=== PATIENT | female | born 1940 | race African-American/Black ===

== ENCOUNTER 2019-11-10 13:29 | Inpatient (IN) | payer OTHER ==
--- NOTE | 2019-11-10 13:59 | PDOC ---
History of Present Illness - General Chief Complaint: Chest Pain Stated Complaint: CP Time Seen by Provider: 11/10/19 13:37 History Source: Patient Exam Limitations: No Limitations - History of Present Illness Initial Comments: 11/10/19 13:56 PCP: Dr. Rubio HPI: 78yo F PMH primary pulmonary hypertension, HTN, COPD, CAD s/p triple bypass and stent placement 2017 presenting from [facility] with chest heaviness at 11:30 AM. Patient denies pain at the current time, endorses SOB, lightheadedness this morning with exertional chest heaviness / "congestion" that occured shortly after physical therapy session this morning. Patient reports difficulty with dizziness during her 9AM PT session, and then chest pain at the start of her second session. Sent to PT follow an admission to [facility]. Reports a remote Echo and stress test. Follows with Dr. Espinal. All: Per chart Meds: Per chart PMH: As above PSH: Per chart, triple bypass Past History - Travel Traveled outside of the country in the last 30 days: Yes Close contact w/someone who was outside of country & ill: Yes - Past Medical History Allergies/Adverse Reactions: Allergies Allergy/AdvReac Type Severity Reaction Status Date / Time ciprofloxacin [From Cipro] Allergy Verified 11/10/19 14:03 cortisone Allergy Verified 11/10/19 14:03 esomeprazole [From Nexium] Allergy Verified 11/10/19 14:03 hydrocodone Allergy Verified 11/10/19 14:03 NSAIDS (Non-Steroidal Allergy Verified 11/10/19 14:03 Anti-Inflamma paroxetine [From Paxil] Allergy Verified 11/10/19 14:03 Penicillins Allergy Verified 11/10/19 14:01 rosiglitazone [From Avandia] Allergy Verified 11/10/19 14:03 warfarin [From Coumadin] Allergy Verified 11/10/19 14:03 Review of Systems - Review of Systems Able to Perform ROS?: Yes Is the patient limited Kinyarwanda proficient: Yes Constitutional: No: Chills, Fever HEENTM: No: Nose Congestion, Throat Pain Respiratory: Yes: Shortness of Breath, SOB with Exertion. No: Cough, Productive cough Cardiac (ROS): Yes: Lightheadedness, Chest Tightness. No: Chest Pain, Edema, Irregular Heart Rate, Palpitations, Syncope ABD/GI: No: Constipated, Diarrhea, Nausea, Vomiting : No: Burning, Dysuria, Frequency Musculoskeletal: No: Muscle Pain, Muscle Weakness Integumentary: No: Pallor, Pruritus, Rash Neurological: No: Headache, Numbness, Tingling, Weakness Psychiatric: No: Stressors, Change in Appetite Endocrine: No: Increased Thirst, Increased Urine Hematologic/Lymphatic: No: Anemia, Blood Clots, Easy Bleeding All Other Systems: Reviewed and Negative *Physical Exam - Physical Exam 11/10/19 14:54 Vitals reviewed, AFVSS, on NC with EMS GEN: Well appearing, obese, appears stated age, NAD, comfortable. AAOx3. HEENT: NCAT, EOMI. Sclera anicteric, noninjected. No facial asymmetry. Moist mucous membranes. Normal voice. Trachea midline. CV: RRR, S1/S2, no murmurs / rubs / gallops appreciated. LUNG: CTAB, normal work of breathing. No wheezes, rales, rhonchi. No cough. Speaking full sentences. GI: Soft, NTND, no guarding, no rebound. No masses. Neg CVAT b/l. EXTREMITIES: 2+ distal pulses. No LE edema. No obvious deformities of all extremities. SKIN: Warm, dry, no rashes appreciated, non-jaundiced. PSYCH: Normal mood and affect. Cooperative and appropriate. NEURO: CN grossly intact. Moving all extremities well. Normal strength and sensation grossly. Heart Score/ECG Review - History History: Moderately suspicious - Electrocardiogram EKG: Normal - Age Age: >/= 65 - Risk Factors Based on the list above the patient has:: >/=3 risk factors or Hx atherosclerotic disease - Troponin Troponin: </= normal limit - Score Heart Score - Total: 5 ED Treatment Course - LABORATORY CBC & Chemistry Diagram: 11/10/19 15:23 11/10/19 15:23 - RADIOLOGY Radiology Studies Ordered: Category Date Time Status CHEST X-RAY PORTABLE* [RAD] Stat Radiology 11/10/19 13:39 Ordered Medical Decision Making - Medical Decision Making 11/10/19 14:51 78yo F PMH primary pulmonary hypertension, HTN, COPD on home O2, CAD s/p triple bypass and stent placement 2016 presenting from [facility] with chest heaviness at 11:30 AM. HEART Score 5. R/o ACS, unlikely PNA, Tamponade, PTX, Dissection, PE. Possibly MSK aches/pains in setting of aggressive daily PT. - CBC, CMP, Cardiac, PT/INR, BNP - CXR, EKG EKG: normal rate, NSR, normal axis, normal intervals, without ST changes 11/10/19 16:34 - Troponin 0.02 - CBC, CMP wnl - BNP 4690 - Non acute CXR Admit Tele Obs 11/10/19 17:51 - Patient endorsed to Dr. Jon - Admitted under Dr. Carter Discharge - Discharge Information Problems reviewed: Yes Clinical Impression/Diagnosis: Chest pain, rule out acute myocardial infarction Condition: Guarded - Admission Yes - Follow up/Referral Referrals: ON STAFF,NOT [Primary Care Provider] - - Patient Discharge Instructions - Post Discharge Activity
--- NOTE | 2019-11-10 14:32 | PDOC ---
Attending Attestation - Resident Resident Name: RamakrishnaSidney - ED Attending Attestation I have performed the following: I have examined & evaluated the patient, The case was reviewed & discussed with the resident, I agree w/resident's findings & plan - HPI HPI: 11/10/19 15:41 78yo F PMH primary pulmonary hypertension, HTN, COPD, CAD s/p triple bypass and stent placement 2017 presenting from [facility] with chest heaviness at 11:30 AM. Patient denies pain at the current time, endorses SOB, lightheadedness this morning with exertional chest heaviness / "congestion" that occured shortly after physical therapy session this morning. Patient reports difficulty with dizziness during her 9AM PT session, and then chest pain at the start of her second session. Sent to PT follow an admission to [facility]. Reports a remote Echo and stress test. Follows with Dr. Espinal. - Physicial Exam PE: 11/10/19 14:31 Agree with the resident's HPI and PE as documented in the electronic medical record. NAD, well appearing, EOMI, PERRL, nl conjunctiva, anicteric; neck supple. anterior sternotomy scars, lungs clear, RRR, abdomen soft nontender. no rebound , guarding. Back nontender. [place] x4, no focal neuro deficits. No peripheral edema. normal color for ethnicity, WWP. no calf tenderness 11/10/19 15:41 - Medical Decision Making 11/10/19 14:32 Vital Signs Temp Pulse Resp BP Pulse Ox 97.8 F 69 16 107/69 100 11/10/19 13:30 11/10/19 13:30 11/10/19 13:30 11/10/19 13:30 11/10/19 13:30 DDx chest pain: ACS, coronary vasospasm, NSTEMI, arrhythmia, unstable angina, PE , dissection, PUD, esophageal spasm, GERD, gastritis, costochondritis, pneumonia , pleurisy, pericarditis/myocarditis. dehydration, electrolyte/metabolic derangements. Considered but clinically doubt based on HPI and PE: Low suspicion for pulmonary embolism or dissection. Historically not abrupt in onset, tearing or ripping, pulses symmetric, no evidence of aortic dissection. EKG right bundle branch block at 67 bpm, sinus rhythm, no prior EKG, nonspecific T wave abnormalities this could go with her pulmonary hypertension Chest x-ray with cardiomegaly, sternotomy scars noted, blunting at the bases, trachea midline, bones are intact Chest pain HEART score 5 which denotes Moderate risk and probability for ACS, risk of 14-16% of MACE at 4-6 wks Given risk factors including comorbidities, gender, family and tobacco use. Plan for admit observation, chest pain to r/o ischemia, serial trops and EKG/ tele monitoring, echo and cards eval. discussion with patient and family at bedside, made aware of impression and plan, questions answered. 11/10/19 14:37 11/11/19 14:44 Heart Score/ECG Review - History History: Slightly suspicious - Electrocardiogram EKG: Non specific repolarization disturbance - Age Age: >/= 65 - Risk Factors Risk Factors Heart Score: Yes Hx Hypercholesterolemia, Yes Hx Hypertension, Yes Hx Obesity Based on the list above the patient has:: >/=3 risk factors or Hx atherosclerotic disease - Troponin Troponin: </= normal limit - Score Heart Score - Total: 5 #1 ECG reviewed & interpreted by me at: 13:55 General ECG Interpretation: Sinus Rhythm, Normal Rate, Normal Intervals Compared to previous ECG there are: Previous ECG unavail 11/10/19 14:31 EKG normal sinus rhythm 67 bpm, no interval abnormalities, wide QRS, right bundle branch block, ST and T wave segments and morphology normal. Nonspecific T wave abnormalities
--- NOTE | 2019-11-10 15:15 | CON.CARD ---
Consult Consult Specialty:: cardiology Reason for Consultation:: chest pain; hx CAD - History of Present Illness Chief Complaint: Pt A&O; no chest pain or dyspnea presetnly. History of Present Illness: 78yo F PMH primary pulmonary hypertension, HTN, COPD, CAD s/p triple bypass and stent placement 2016, obesity, sedentary lifestyle, presenting from [facility] with chest heaviness at 11:30 AM. Patient denies pain at the current time, endorses SOB, lightheadedness this morning with exertional chest heaviness / "congestion" that occurred shortly after physical therapy session this morning. Patient reports difficulty with dizziness during her 9AM PT session, and then chest pain at the start of her second session. Sent to PT follow an admission to [facility]. Reports a remote Echo and stress test. Cardiology: Dr. Espinal. All: Per chart PMHx: s/p PCI LM 03/2017 2 V CABG CUETO OM and SVG to RCA February 2013 Dr. Thakkar Left CEA Right Carotid artery stenting Dr. Castrejon Right CEA s/p right SFA/popliteal/TPT/peroneal angioplasty for right foot ulcers 04/2018 Dr Castrejon Ongoing medical problems ASHD negative MIBI ST 2011 ASHD PTCA , drug eluting stent placement in 90 % stenosed rPDA, JOSH-promus placement in mLAD and PTCA of 1st diagonal. Nov,January 2010 depression DM 1979 HHD HTN hyperlipidemia In stent restenosis LAD proximal and mid segment. December 30, 2011 [place] 1995 Spinal stenosis 2001 [facility]stem[facility] f/u PCI JOSH LM [facility] dr. Polanco March 2017 Preventive care No preventive care recordedPM - History Source History Provided By: Patient, Medical Record Limitations to Obtaining History: Poor Historian - Past Medical History Cardio/Vascular: Yes: CAD, CHF, HTN, Other (CABG) Renal/: Yes: Renal Inusuff Reproductive: Yes: Postmenopausal ...: No - Past Surgical History Past Surgical History: Yes: CABG, Stent (coronary) - Alcohol/Substance Use Hx Alcohol Use: No - Smoking History Smoking history: Never smoked Home Medications - Allergies Allergies/Adverse Reactions: Allergies Allergy/AdvReac Type Severity Reaction Status Date / Time ciprofloxacin [From Cipro] Allergy Verified 11/10/19 14:03 cortisone Allergy Verified 11/10/19 14:03 esomeprazole [From Nexium] Allergy Verified 11/10/19 14:03 hydrocodone Allergy Verified 11/10/19 14:03 NSAIDS (Non-Steroidal Allergy Verified 11/10/19 14:03 Anti-Inflamma paroxetine [From Paxil] Allergy Verified 11/10/19 14:03 Penicillins Allergy Verified 11/10/19 14:01 rosiglitazone [From Avandia] Allergy Verified 11/10/19 14:03 warfarin [From Coumadin] Allergy Verified 11/10/19 14:03 - Home Medications Home Medications: Ambulatory Orders Acetaminophen 1,000 mg PO BID 11/11/19 Aspirin [Aspirin EC] 81 mg PO DAILY 11/11/19 Atorvastatin Ca [Lipitor] 40 mg PO HS 11/11/19 Citalopram Hydrobromide [Citalopram HBr] 20 mg PO DAILY 11/11/19 Clopidogrel Bisulfate [Clopidogrel] 75 mg PO DAILY 11/11/19 Ezetimibe 10 mg PO HS 11/11/19 Folic Acid 1 mg PO DAILY 11/11/19 Insulin Glargine,Hum.rec.anlog [Lantus Solostar PEN -] 45 unit SQ HS 11/11/19 Insulin Lispro [Humalog] 10 unit SQ AC 11/11/19 Isosorbide Mononitrate [Imdur -] 30 mg PO DAILY 11/11/19 Levalbuterol HCl 0.31 mg IH Q8H PRN 11/11/19 Lisinopril [Zestril] 2.5 mg PO DAILY 11/11/19 Metformin HCl [Glucophage] 500 mg PO BID 11/11/19 Metoprolol Tartrate 50 mg PO BID 11/11/19 Montelukast Na [Singulair -] 10 mg PO HS 11/11/19 Nortriptyline HCl [Pamelor -] 25 mg PO HS 11/11/19 Pantoprazole Sodium [Protonix -] 40 mg PO DAILY 11/11/19 Polyethylene Glycol 3350 [Gavilax] 17 gm PO BID 11/11/19 Family Medical History Family History: Denies Review of Systems - Review of Systems Constitutional: reports: No Symptoms Eyes: reports: No Symptoms HENT: reports: No Symptoms Neck: reports: No Symptoms Cardiovascular: reports: Chest Pain Respiratory: reports: No Symptoms Gastrointestinal: reports: No Symptoms Genitourinary: reports: No Symptoms Breasts: reports: No Symptoms Reported Musculoskeletal: reports: Muscle Weakness Integumentary: reports: No Symptoms Neurological: reports: Weakness Endocrine: reports: No Symptoms Hematology/Lymphatic: reports: No Symptoms Psychiatric: reports: No Symptoms - Risk Factors Known Risk Factors: Yes: Age, Hypercholesterolemia, Hypertension, Physical Inactivity, Other (CAD/CABG) Vital Signs: Vital Signs Temperature 97.8 F 11/10/19 13:30 Pulse Rate 69 11/10/19 13:30 Respiratory Rate 16 11/10/19 13:30 Blood Pressure 107/69 11/10/19 13:30 O2 Sat by Pulse Oximetry (%) 100 11/10/19 13:30 Constitutional: Yes: Calm Eyes: Yes: WNL HENT: Yes: WNL Neck: Yes: WNL Respiratory: Yes: WNL Gastrointestinal: Yes: Soft Renal/: No: Anuria Cardiovascular: Yes: Regular Rate and Rhythm Heart Sounds: Yes: S1, S2, S4 Musculoskeletal: Yes: Back Pain, Joint Stiffness Edema: No Peripheral Pulses WNL: Yes Psychiatric: Yes: Alert, Oriented - Other Data Echo: Pending Prior Cardiac Procedures: CABG, PTCA with Stent Problem List - Problems (1) Coronary artery disease Code(s): I25.10 - ATHSCL HEART DISEASE OF [place] CORONARY ARTERY W/O ANG PCTRS (2) HTN (hypertension) Assessment/Plan: On furosemide and Imdur. F/u BP serially. F/u ECHO for LVEF, wall motion, valve status. Code(s): I10 - ESSENTIAL (PRIMARY) HYPERTENSION (3) Obesity Code(s): E66.9 - OBESITY, UNSPECIFIED (4) Hyperlipidemia Assessment/Plan: On atorvastatin. F/u lipid profile. Code(s): E78.5 - HYPERLIPIDEMIA, UNSPECIFIED (5) Chest pain, rule out acute myocardial infarction Assessment/Plan: TNI < 0.02 x 1; f/u serially. F/u EKG: telemetry. ECHO for LVEF, wall motion, valve status. On ASA and clopidogrel. Code(s): R07.9 - CHEST PAIN, UNSPECIFIED
[2019-11-10 15:53] LABS: BASO % 0.8 % (0-2.0); EOS % 2.7 % (0-4.5); HEMATOCRIT 35.1 % (32.4-45.2); HEMOGLOBIN 11.1 GM/dL (10.7-15.3); LYMPH % 27.7 % (8-40); MCH 27.2 pg (25.7-33.7); MCHC 31.7 g/dl (32.0-36.0); MEAN CELL VOLUME 85.8 fl (80-96); MEAN PLT VOLUME 8.1 fl (7.5-11.1); MONO % 10.2 % (3.8-10.2); NEUT % 58.6 % (42.8-82.8); PLATELET COUNT 195 K/MM3 (134-434); RBC 4.09 M/mm3 (3.60-5.2); RDW 17.9 % (11.6-15.6)
[2019-11-10 16:22] LABS: BILIRUBIN,TOTAL 0.3 mg/dL (0.2-1); BLOOD UREA NITROGEN 47.1 mg/dL (7-18); CREATININE 1.6 mg/dL (0.55-1.3); N-TERMINAL BNP 4690.2 pg/ml (5-450); POTASSIUM 5.5 mmol/L (3.5-5.1); TOT PROT 6.5 g/dl (6.4-8.2)
--- NOTE | 2019-11-10 19:13 | PN ---
Teaching Attending Note Name of Resident: Lucius Fletcher ATTENDING PHYSICIAN STATEMENT I saw and evaluated the patient. I reviewed the resident's note and discussed the case with the resident. I agree with the resident's findings and plan as documented. SUBJECTIVE: Patient is a 78 year old woman with PMH of Primary pulmonary hypertension, HTN, COPD (2L oxygen), NIDDM, Bilateral carotid endarterectomy, Hysterectomy, CKD and CAD (s/p triple bypass and stent placement 2016) presenting from [facility] with chest heaviness at 11:30 AM. Patient denies pain at the current time. Had SOB, lightheadedness this morning with exertional chest heaviness/ "congestion" that occured shortly after physical therapy session this morning. Patient reports difficulty with dizziness during her 9AM PT session, and then chest pain at the start of her second session. Sent to PT followwing an admission to [facility] for "SOB and severe weakness". Was on lasix, but was stopped at [facility]. Reports a remote ECHO and stress test. Follows with Dr. Espinal. Denies nausea, vomiting, fever, chills, abdominal pain, diarrhea or dysuria. Denies alcohol, tobacco or illicit drug use. No sick contacts or recent travels. OBJECTIVE: Alert and not orthostatic Vital Signs Period Temp Pulse Resp BP Sys/Forrester Pulse Ox Last 24 Hr 97.8 F-98.0 F 69-72 16-18 107-110/65-69 100-100 HEENT: No Jaundice, eye redness or discharge, PERRLA, EOMI. Normocephalic, atraumatic. External ears are normal and hearing is grossly intact. No nasal discharge. Neck: Supple, nontender. No palpable adenopathy or thyromegaly. No JVD Chest: Good effort. Clear to auscultation and percussion. Heart: Regular. No S3, rub or murmur Abdomen: Not distended, soft, nontender and no HSM. No rebound or guarding. Normal bowel sounds. Ext: Peripheral pulses intact. No leg edema. Skin: Warm and dry. No petechiae, rash or ecchymosis. Neuro: Alert. Oriented x3. CN 2-12 grossly intact. Sensation grossly intact in all four extremities and DTR are symmetric. Psych: Appropriate mood and affect. Good insight. Abnormal Lab Results 11/10/19 11/10/19 11/10/19 15:23 15:23 15:23 MCHC 31.7 L RDW 17.9 H PT with INR 13.50 H INR 1.14 H Potassium Chloride Anion Gap BUN Creatinine Random Glucose AST ALT Alkaline Phosphatase Creatine Kinase 202 H B-Natriuretic Peptide Albumin 11/10/19 15:23 MCHC RDW PT with INR INR Potassium 5.5 H Chloride 108 H Anion Gap 7 L BUN 47.1 H Creatinine 1.6 H Random Glucose 117 H AST 102 H ALT 79 H Alkaline Phosphatase 128 H Creatine Kinase B-Natriuretic Peptide 4690.2 H Albumin 3.0 L Current Medications Generic Name Dose Route Start Last Admin Trade Name Freq PRN Reason Stop Dose Admin Dextrose 25 gm 11/10/19 20:35 D50w (Vial) - IVPUSH 11/10/19 20:36 NOW ONE Furosemide 40 mg 11/10/19 20:45 Lasix Injection - IVPUSH DAILY [facility] Heparin Sodium (Porcine) 5,000 unit 11/10/19 20:45 Heparin - SQ Q8H-IV JOSE GUADALUPE Insulin Aspart 5 units 11/11/19 20:36 Novolog SQ 11/11/19 20:37 ONCE ONE ASSESSMENT AND PLAN: 1. Chest pain - Now pain free. EKG shows NSR, LAE, LAD and RBBB. Initial troponin is negative. CXR shows cardiomegaly. Will admit to telemetry to rule out ACS, get ECHO and consult cardiology. Give a trial of lasix 40 mg IV and guage response - may need a higher dose. Restrict dietary salt intake and get daily standing weight. Consult PT. 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 Will give D50W, insulin and one dose of Lokelma. Repeat BMP after 4 hours. Trend LFTs, get hepatitis serology and get upper abdominal sonogram. Will continue comprehensive care for all of patients comorbid conditions. 2. Hypoalbuminemia - Possibly due to combined effects of malnutrition and inflammation associated with comorbid chronic conditions. Will ensure adequate dietary protein intake and also consult nuclear process engineer. Urinalysis pending. 3. DM For now, we will hold the home diabetes drugs and implement sliding scale insulin regimen. Provide comprehensive diabetes care with patient teaching and counseling about the importance of adherence to prescribed diabetes regimen, euglycemia, eye care and foot care. 4. CKD - Has multiple risk factors for CKD. Will consult nephrology and avoid nephrotoxic agents such as NSAIDS, aminoglycosides, contrast dyes and certain Alternative medicine products. 5. Obesity Counseled on the risks associated with obesity. Will provide patient all the necessary assistance, counseling and positive reinforcement to facilitate weight loss. Consult nuclear process engineer. 6. Hypertension - Restart suitable outpatient antihypertensive drugs when clinically appropriate. Revise regimen to ensure [id number] excellent BP control and child guidance counselor patient on the injurious effects of uncontrolled hypertension. Nonpharmacologic measures to control hypertension like weight loss , salt restriction and exercise discussed. Importance of adherence to treatment regimen and attainment of normotension emphasized. 7. DVT prophylaxis - Heparin 5000u sq tid. 8. Advance directives - Full code
[2019-11-10] MEDS ORDERED: DEXTROSE 50%-WATER - 25 GM/50 ML VIAL IVPUSH ONE (20:35)
--- NOTE | 2019-11-10 20:54 | HP ---
CHIEF COMPLAINT: SOB w/ chest pressure PCP: Joanne HISTORY OF PRESENT ILLNESS: 78F w/ pmh HTN, diabetic CKD, IDDM, primary pulmonary HTN, L-spine stenosis, COPD(2L O2), CAD(s/p 3v bypass 2013, s/p cath 2016), recent admission to [facility] for SOB and weakness. Presenting to [facility] for complaint of chest pressure and SOB intermittently throughout morning of admission. Was at [facility], receiving PT(arm excercises with wrist weights) and experienced SOB, chest pressure. Pt tried rest but pressure did not resolve. Received a SL nitro tab w/ little effect. Had CP relief after Duonebs. The [facility] staff decided to send pt to ED to evaluate for VT. Pt endorses having lasix in the past, but medication stopped upon [facility] admission. Says that she has had nonproductive cough since ~Fall 2018. Sleeps with multiple pillows. Has had intermittent BLE swelling. Claims to have annual stress tests. Lives in [facility], adult granddaughter currently living with pt. Uses walker to ambulate. Former occupation as seamstress with hats, clothing ER course was notable for: (1) Cr 1.6, K 5.5 (2) BNP 4690, troponin neg x1 (3) EKG: NSR, QTc 471 (4) CXR: weak inspiration (5) orthostatics neg(supine 75, 126/59; sitting 78, 120/65) Recent Travel: none PAST MEDICAL HISTORY: HTN, diabetic CKD, IDDM, primary pulmonary HTN, L-spine stenosis, COPD(2L O2), CAD(s/p 3v bypass 2013, s/p cath 2016) PAST SURGICAL HISTORY: Carotid Endartectomy CABG x3v cadiac cath hysterectomy Social History: Smoking: never Alcohol: social Drugs: never Allergies ciprofloxacin [From Cipro] Allergy (Verified 11/10/19 14:03) cortisone Allergy (Verified 11/10/19 14:03) esomeprazole [From Nexium] Allergy (Verified 11/10/19 14:03) hydrocodone Allergy (Verified 11/10/19 14:03) NSAIDS (Non-Steroidal Anti-Inflamma Allergy (Verified 11/10/19 14:03) paroxetine [From Paxil] Allergy (Verified 11/10/19 14:03) Penicillins Allergy (Verified 11/10/19 14:01) rosiglitazone [From Avandia] Allergy (Verified 11/10/19 14:03) warfarin [From Coumadin] Allergy (Verified 11/10/19 14:03) HOME MEDICATIONS: REVIEW OF SYSTEMS CONSTITUTIONAL: generalized weakness, mild weight gain Absent: fever, chills, diaphoresis, malaise, loss of appetite, HEENT: Absent: rhinorrhea, nasal congestion, throat pain, throat swelling, difficulty swallowing, mouth swelling, ear pain, eye pain, visual changes CARDIOVASCULAR: substernal chest pressure, lightheadedness, Absent: syncope, palpitations, irregular heart rate, peripheral edema RESPIRATORY: nonproductive cough, dyspnea with exertion, orthopnea, Absent: shortness of breath,wheezing, stridor, hemoptysis GASTROINTESTINAL: Absent: abdominal pain, abdominal distension, nausea, vomiting, diarrhea, constipation, melena, hematochezia GENITOURINARY: Absent: dysuria, frequency, urgency, hesitancy, hematuria, flank pain, genital pain MUSCULOSKELETAL: chronic lower back pain Absent: myalgia, arthralgia, joint swelling, neck pain SKIN: Absent: rash, itching, pallor NEUROLOGIC: Absent: headache, focal weakness, dizziness, unsteady gait, seizure, mental status changes, bladder or bowel incontinence PHYSICAL EXAMINATION Vital Signs - 24 hr 11/10/19 11/10/19 13:30 18:07 Temperature 97.8 F 98.0 F Pulse Rate 69 Pulse Rate [ 72 Apical] Respiratory 16 18 Rate Blood Pressure 107/69 Blood Pressure 110/65 [Right Arm] O2 Sat by Pulse 100 100 Oximetry (%) GENERAL: Awake, alert, and fully oriented, in no acute distress. Morbid obesity HEAD: NC/AT. EYES: extraocular movements intact, sclera anicteric, conjunctiva clear. No lid lag. EARS, NOSE, THROAT: Ears normal, nares patent, oropharynx clear without exudates. Moist mucous membranes. NECK: Normal range of motion, supple without lymphadenopathy, JVD, or masses. LUNGS: Breath sounds equal, clear to auscultation bilaterally. No wheezes, and no crackles. No accessory muscle use. Speaking full sentences comfortably on RA HEART: Regular rate and rhythm, normal S1 and S2 without murmur, rub or gallop. ABDOMEN: Right-sided surgical scar indentation, soft distendble Right paraumbilical hernia(reducible). Soft, nontender, not distended, normoactive bowel sounds, no guarding, no rebound, no masses. MUSCULOSKELETAL: Normal range of motion at all joints. No bony deformities or tenderness. No CVA tenderness. UPPER EXTREMITIES: 2+ pulses, warm, well-perfused. No cyanosis. No clubbing. No peripheral edema. LOWER EXTREMITIES: 2+ pulses, warm, well-perfused. No calf tenderness. Non- pitting edema of BLE. Tree-bark, hyperpigmented anterior lower legs with thickened skin NEUROLOGICAL: Cranial nerves II-XII intact. Normal speech. Normal gait. PSYCHIATRIC: Cooperative. Good eye contact. Appropriate mood and affect. Laboratory Results - last 24 hr 11/10/19 11/10/19 11/10/19 15:23 15:23 15:23 WBC 9.0 RBC 4.09 Hgb 11.1 Hct 35.1 MCV 85.8 MCH 27.2 MCHC 31.7 L RDW 17.9 H Plt Count 195 MPV 8.1 Absolute Neuts (auto) 5.3 Neutrophils % 58.6 Lymphocytes % 27.7 Monocytes % 10.2 Eosinophils % 2.7 Basophils % 0.8 Nucleated RBC % 0 PT with INR 13.50 H INR 1.14 H PTT (Actin FS) 28.0 Sodium Potassium Chloride Carbon Dioxide Anion Gap BUN Creatinine Est GFR (CKD-EPI)AfAm Est GFR (CKD-EPI)NonAf Random Glucose Calcium Total Bilirubin AST ALT Alkaline Phosphatase Creatine Kinase 202 H Creatine Kinase Index 1.3 CK-MB (CK-2) 2.8 Troponin I < 0.02 B-Natriuretic Peptide Total Protein Albumin 11/10/19 15:23 WBC RBC Hgb Hct MCV MCH MCHC RDW Plt Count MPV Absolute Neuts (auto) Neutrophils % Lymphocytes % Monocytes % Eosinophils % Basophils % Nucleated RBC % PT with INR INR PTT (Actin FS) Sodium 139 Potassium 5.5 H Chloride 108 H Carbon Dioxide 24 Anion Gap 7 L BUN 47.1 H Creatinine 1.6 H Est GFR (CKD-EPI)AfAm 35.15 Est GFR (CKD-EPI)NonAf 30.33 Random Glucose 117 H Calcium 9.0 Total Bilirubin 0.3 AST 102 H ALT 79 H Alkaline Phosphatase 128 H Creatine Kinase Creatine Kinase Index CK-MB (CK-2) Troponin I B-Natriuretic Peptide 4690.2 H Total Protein 6.5 Albumin 3.0 L ASSESSMENT/PLAN: 78F w/ pmh HTN, diabetic CKD, IDDM, primary pulmonary HTN, L-spine stenosis, COPD(2L O2), CAD(s/p 3v bypass 2013, s/p cath 2016), sent to [facility] for complaint of chest pressure and SOB, worsened with activity. Admitted for ACS r/ o. # chest pain --likely mild CHFe vs MSK > EKG: NSR, QTc 487 > troponin neg x1 > BNP 4690 > CR: weak inspiration - fu rpt EKG --pending - fu echo --pending - fu cardiac enzymes --pending - lasix 40mg IVP, QD - CardioBrayan) consult: --recs pending - daily weights - limit sodium <1.5g/daily # transaminitis --likely fatty liver - fu US RUQ --pending - hepatitis panel --pending # diabetic CKD > Cr 1.6 - consider Nephro Consult # CAD - cw plavix, ASA # IDDM diabetes - Levemir 45U HS - ISS # COPD --unlikely in excerbation - cw home O2 requirements(2L) - cw home meds # prolonged QTc ~471 - avoid QTc-prolonging drugs FEN - sodium controlled diet - avoid IVF DVT -SQH Dispo -Tele Visit type - Emergency Visit Emergency Visit: Yes ED Registration Date: 11/10/19 Care time: The patient presented to the Emergency Department on the above date and was hospitalized for further evaluation of their emergent condition. - New Patient This patient is new to me today: Yes Date on this admission: 11/11/19 - Critical Care Critical Care patient: No ATTENDING PHYSICIAN STATEMENT I saw and evaluated the patient. I reviewed the resident's note and discussed the case with the resident. I agree with the resident's findings and plan as documented. SUBJECTIVE: OBJECTIVE: ASSESSMENT AND PLAN:
[2019-11-10 21:40] LABS: INR 1.12 (0.83-1.09); PROTHROMBIN TIME (PATIENT) 13.2 SEC (9.7-13.0)
[2019-11-10] MEDS ORDERED: DEXTROSE 50%-WATER 25 GM/50 ML DISP.SYRIN ONE (21:41)
[2019-11-10 21:43] LABS: ACTIVATED PTT 26.6 SECONDS (25.2-36.5)
[2019-11-10] MEDS: FUROSEMIDE 40 MG/4 ML INJECTABLE VIAL IVPUSH SCH (21:48)
[2019-11-10] MEDS: HEPARIN NA (PORCINE) 5,000 UNITS/ML 1ML VIAL SQ SCH (21:48)
[2019-11-10] MEDS ORDERED: INSULIN (NOVOLOG) ASPART 100 UNITS/ML 10ML VIAL SQ ONE (22:57)
[2019-11-10] MEDS ORDERED: ACETAMINOPHEN 325 MG TABLET (FP) PO PRN (23:29)
[2019-11-11 01:12] VITALS: BMI 36.6
[2019-11-11] MEDS ORDERED: SODIUM ZIRCONIUM CYCLOSILICATE (LOKELMA) 5 GM PACKET PO ONE (03:30)
[2019-11-11] MEDS: HEPARIN NA (PORCINE) 5,000 UNITS/ML 1ML VIAL SQ SCH ×3 (03:30→17:21)
[2019-11-11 08:12] LABS: HEMATOCRIT 38.8 % (32.4-45.2); HEMOGLOBIN 12.4 GM/dL (10.7-15.3); MCH 27.2 pg (25.7-33.7); MEAN CELL VOLUME 85.2 fl (80-96); MEAN PLT VOLUME 7.8 fl (7.5-11.1); PLATELET COUNT 177 K/MM3 (134-434); RBC 4.56 M/mm3 (3.60-5.2); RDW 17.4 % (11.6-15.6); WHITE BLOOD COUNT 8.1 K/mm3 (4.0-10.0)
[2019-11-11 08:32] LABS: ALBUMIN 3.6 g/dl (3.4-5.0); ALK PHOS 131 U/L (45-117); ANION GAP 8 MMOL/L (8-16); BILIRUBIN,TOTAL 0.6 mg/dL (0.2-1); BLOOD UREA NITROGEN 39.3 mg/dL (7-18); CALCIUM 9.3 mg/dL (8.5-10.1); CHLORIDE 100 mmol/L (98-107); CHOLESTEROL 123 mg/dL (50-200); CO2 28 mmol/L (21-32); CREATININE 1.5 mg/dL (0.55-1.3); GLUCOSE,RANDOM 156 mg/dL (74-106); HDL CHOLESTEROL 42 mg/dL (40-60); LDL CHOLESTEROL (ONLY SJRH) 60 mg/dL (5-100); MAGNESIUM 1.8 mg/dL (1.8-2.4); POTASSIUM 4.5 mmol/L (3.5-5.1); SGOT/AST 71 U/L (15-37); SGPT/ALT 75 U/L (13-61); SODIUM 136 mmol/L (136-145); TOT PROT 7.4 g/dl (6.4-8.2); TRIGLYCERIDES 109 mg/dL (0-150)
[2019-11-11] MEDS: CLOPIDOGREL BISULFATE 75 MG TABLET (FP) PO SCH (09:35)
[2019-11-11] MEDS: PANTOPRAZOLE 40 MG TABLET PO SCH (09:35)
[2019-11-11] MEDS: ISOSORBIDE MONONITRATE 30 MG TAB.SR.24H (FP) PO SCH (09:35)
[2019-11-11] MEDS: FUROSEMIDE 40 MG/4 ML INJECTABLE VIAL IVPUSH SCH (09:36)
[2019-11-11] MEDS: ASPIRIN COATED 81 MG TABLET.EC PO SCH (09:36)
[2019-11-11] MEDS: METOPROLOL TARTRATE 50 MG TABLET (FP) PO SCH ×2 (09:36→21:18)
--- NOTE | 2019-11-11 09:49 | PN ---
Progress Note, Physician History of Present Illness: 78yo F PMH primary pulmonary hypertension, HTN, COPD, CAD s/p triple bypass and stent placement 2017, obesity, sedentary lifestyle, presenting from [facility] with chest heaviness at 11:30 AM. Patient denies pain at the current time, endorses SOB, lightheadedness this morning with exertional chest heaviness / "congestion" that occurred shortly after physical therapy session this morning. Patient reports difficulty with dizziness during her 9AM PT session, and then chest pain at the start of her second session. Sent to PT follow an admission to [facility]. Reports a remote Echo and stress test. PMHx: s/p PCI LM 03/2017 2 V CABG CUETO OM and SVG to RCA February 2013 Dr. Thakkar Left CEA Right Carotid artery stenting Dr. Castrejon Right CEA s/p right SFA/popliteal/TPT/peroneal angioplasty for right foot ulcers 04/2018 Dr Castrejon Ongoing medical problems ASHD negative MIBI ST 2011 ASHD PTCA , drug eluting stent placement in 90 % stenosed rPDA, JOSH-promus placement in mLAD and PTCA of 1st diagonal. Nov,January 2010 depression DM 1978 HHD HTN hyperlipidemia In stent restenosis LAD proximal and mid segment. December 30, 2011 [place] 1994 Spinal stenosis 2001 Nonstemi [facility] f/u PCI [facility] Polanco March 2017 Preventive care No preventive care recordedPM - Current Medication List Current Medications: Active Medications Aspirin (Ecotrin -) 81 mg PO DAILY [facility] Last Admin: 11/11/19 09:36 Dose: 81 mg Atorvastatin Calcium (Lipitor -) 40 mg PO HS [facility] Clopidogrel Bisulfate (Plavix -) 75 mg PO DAILY [facility] Last Admin: 11/11/19 09:35 Dose: 75 mg Furosemide (Lasix Injection -) 40 mg IVPUSH DAILY [facility] Last Admin: 11/11/19 09:36 Dose: 40 mg Heparin Sodium (Porcine) (Heparin -) 5,000 unit SQ Q8H-IV [facility] Last Admin: 11/11/19 09:36 Dose: 5,000 unit Insulin Aspart (Novolog Vial) 1 units SQ ACHS [facility]; Protocol Insulin Detemir (Levemir Vial) 45 units SQ HS [facility] Isosorbide Mononitrate (Imdur -) 30 mg PO DAILY [facility] Last Admin: 11/11/19 09:35 Dose: 30 mg Metoprolol Tartrate (Lopressor -) 50 mg PO BID [facility] Last Admin: 11/11/19 09:36 Dose: 50 mg Pantoprazole Sodium (Protonix -) 40 mg PO DAILY [facility] Last Admin: 11/11/19 09:35 Dose: 40 mg - Objective Vital Signs: Vital Signs Temperature 98.6 F 11/11/19 05:32 Pulse Rate 88 11/11/19 05:32 Respiratory Rate 11/11/19 08:19 Blood Pressure 139/65 11/11/19 05:32 O2 Sat by Pulse Oximetry (%) 97 11/11/19 08:19 Eyes: Yes: WNL, Conjunctiva Clear, EOM Intact HENT: Yes: WNL, Atraumatic, Normocephalic Neck: Yes: WNL, Supple, Trachea Midline Cardiovascular: Yes: WNL, Regular Rate and Rhythm Respiratory: Yes: WNL, Regular, CTA Bilaterally Gastrointestinal: Yes: WNL, Normal Bowel Sounds Genitourinary: Yes: WNL Musculoskeletal: Yes: WNL Extremities: Yes: WNL Edema: No Integumentary: Yes: WNL Neurological: Yes: WNL, Alert, Oriented ...Motor Strength: WNL Psychiatric: Yes: WNL Labs: CBC, BMP 11/11/19 07:10 11/11/19 07:10 INR, PTT INR 1.12 (0.83-1.09) H 11/10/19 15:23 Assessment/Plan - Problems (1) Coronary artery disease Code(s): I25.10 - ATHSCL HEART DISEASE OF [place] CORONARY ARTERY W/O ANG PCTRS (2) HTN (hypertension) Assessment/Plan: On furosemide and Imdur. F/u BP serially. F/u ECHO for LVEF, wall motion, valve status. Code(s): I10 - ESSENTIAL (PRIMARY) HYPERTENSION (3) Obesity Code(s): E66.9 - OBESITY, UNSPECIFIED (4) Hyperlipidemia Assessment/Plan: On atorvastatin. F/u lipid profile. Code(s): E78.5 - HYPERLIPIDEMIA, UNSPECIFIED (5) Chest pain, rule out acute myocardial infarction Assessment/Plan: TNI < 0.02 x 1; f/u serially. F/u EKG: telemetry. ECHO for LVEF, wall motion, valve status. On ASA and clopidogrel. Risk stratification when stable. Code(s): R07.9 - CHEST PAIN, UNSPECIFIED
[2019-11-11] MEDS: INSULIN (NOVOLOG) ASPART 100 UNITS/ML 10ML VIAL SQ SCH ×4 (12:09→21:19)
--- NOTE | 2019-11-11 12:46 | PN ---
Progress Note, Physician Chief Complaint: Chest Pain History of Present Illness: Previous notes and events reviewed awake and alert NAD denies complaints of chest pain or SOB trop neg x 2 elevated BNP - Current Medication List Current Medications: Active Medications Aspirin (Ecotrin -) 81 mg PO DAILY [facility] Last Admin: 11/11/19 09:36 Dose: 81 mg Atorvastatin Calcium (Lipitor -) 40 mg PO HS [facility] Clopidogrel Bisulfate (Plavix -) 75 mg PO DAILY [facility] Last Admin: 11/11/19 09:35 Dose: 75 mg Furosemide (Lasix Injection -) 40 mg IVPUSH DAILY [facility] Last Admin: 11/11/19 09:36 Dose: 40 mg Heparin Sodium (Porcine) (Heparin -) 5,000 unit SQ Q8H-IV [facility] Last Admin: 11/11/19 09:36 Dose: 5,000 unit Insulin Aspart (Novolog Vial) 1 units SQ [facility]; Protocol Last Admin: 11/11/19 12:10 Dose: Not Given Insulin Detemir (Levemir Vial) 45 units SQ [facility] Isosorbide Mononitrate (Imdur -) 30 mg PO DAILY [facility] Last Admin: 11/11/19 09:35 Dose: 30 mg Metoprolol Tartrate (Lopressor -) 50 mg PO BID [facility] Last Admin: 11/11/19 09:36 Dose: 50 mg Pantoprazole Sodium (Protonix -) 40 mg PO DAILY [facility] Last Admin: 11/11/19 09:35 Dose: 40 mg - Objective Vital Signs: Vital Signs Temperature 98.6 F 11/11/19 05:32 Pulse Rate 88 11/11/19 05:32 Respiratory Rate 20 11/11/19 08:19 Blood Pressure 139/65 11/11/19 05:32 O2 Sat by Pulse Oximetry (%) 97 11/11/19 08:19 Constitutional: Yes: No Distress, Calm, Obese Eyes: Yes: Conjunctiva Clear HENT: Yes: Atraumatic Cardiovascular: Yes: Regular Rate and Rhythm Respiratory: Yes: Regular, Diminished, On Nasal O2 Gastrointestinal: Yes: Normal Bowel Sounds, Soft, Abdomen, Obese Genitourinary: Yes: Incontinence Musculoskeletal: Yes: Muscle Weakness Extremities: Yes: WNL Edema: No Neurological: Yes: Alert, Oriented Psychiatric: Yes: Alert, Oriented Labs: CBC, BMP 11/11/19 07:10 11/11/19 07:10 INR, PTT INR 1.12 (0.83-1.09) H 11/10/19 15:23 Problem List - Problems (1) Coronary artery disease Assessment/Plan: -Aspirin, Plavix, and Atorvastatin Code(s): I25.10 - ATHSCL HEART DISEASE OF [place] CORONARY ARTERY W/O ANG PCTRS (2) HTN (hypertension) Assessment/Plan: -Isosorbide -low Na diet Code(s): I10 - ESSENTIAL (PRIMARY) HYPERTENSION (3) Hyperlipidemia Assessment/Plan: -Atorvastatin Code(s): E78.5 - HYPERLIPIDEMIA, UNSPECIFIED (4) Chest pain, rule out acute myocardial infarction Assessment/Plan: -Cardiology on board -Trop neg x 2 -tele monitoring -Echocardiogram Code(s): R07.9 - CHEST PAIN, UNSPECIFIED (5) Diabetes mellitus Assessment/Plan: -[facility] -Levemir -diabetic/low Na diet -HgA1c Code(s): E11.9 - TYPE 2 DIABETES MELLITUS WITHOUT COMPLICATIONS (6) Transaminitis Assessment/Plan: -AST 71, ALT 75, Alk Phos 131 -Pendng Abdominal US -monitor LFTs fr downtrend Code(s): R74.0 - NONSPEC ELEV OF LEVELS OF TRANSAMNS & LACTIC ACID DEHYDRGNSE (7) Acute exacerbation of CHF (congestive heart failure) Assessment/Plan: -FUrosemide -BNP 4690.2 -1L fluid restriction -strict I&Os -low Na diet Code(s): I50.9 - HEART FAILURE, UNSPECIFIED Assessment/Plan see problem list dvt ppx
--- NOTE | 2019-11-11 15:49 | EKG ---
Test Reason : Blood Pressure : / mmHG Vent. Rate : 083 BPM Atrial Rate : 083 BPM P-R Int : 166 ms QRS Dur : 150 ms QT Int : 426 ms P-R-T Axes : 029 -35 026 degrees QTc Int : 500 ms NORMAL SINUS RHYTHM LEFT ATRIAL ENLARGEMENT LEFT AXIS DEVIATION LEFT ANTERIOR FASCICULAR BLOCK RIGHT BUNDLE BRANCH BLOCK ABNORMAL ECG Confirmed by MD OVALLE MOYSES ([id number]) on 11/11/2019 3:49:13 PM Referred By: Confirmed By:RASHEED OVALLE MD
--- NOTE | 2019-11-11 16:12 | EKG ---
Test Reason : Blood Pressure : / mmHG Vent. Rate : 067 BPM Atrial Rate : 067 BPM P-R Int : 166 ms QRS Dur : 142 ms QT Int : 446 ms P-R-T Axes : 032 -44 003 degrees QTc Int : 471 ms NORMAL SINUS RHYTHM LEFT ATRIAL ENLARGEMENT LEFT AXIS DEVIATION LEFT ANTERIOR FASCICULAR BLOCK RIGHT BUNDLE BRANCH BLOCK ABNORMAL ECG NO PREVIOUS ECGS AVAILABLE Confirmed by MD VASQUEZ, RASHEED ([id number]) on 11/11/2019 4:11:30 PM Referred By: Confirmed By:RASHEED OVALLE MD
[2019-11-11] MEDS ORDERED: INSULIN (NOVOLOG) ASPART 100 UNITS/ML 10ML VIAL SQ ONE (20:36)
[2019-11-11] MEDS: ATORVASTATIN CA 40 MG TABLET (FP) PO SCH (21:18)
[2019-11-11] MEDS ORDERED: INSULIN (LEVEMIR) 100 UNITS/ML UNITS SQ SCH (22:00)
[2019-11-12] MEDS: HEPARIN NA (PORCINE) 5,000 UNITS/ML 1ML VIAL SQ SCH ×3 (01:01→17:54)
[2019-11-12] MEDS: INSULIN (NOVOLOG) ASPART 100 UNITS/ML 10ML VIAL SQ SCH ×2 (06:32→12:52)
[2019-11-12 07:41] LABS: HEMATOCRIT 37.7 % (32.4-45.2); HEMOGLOBIN 12.2 GM/dL (10.7-15.3); MCH 27.2 pg (25.7-33.7); MCHC 32.4 g/dl (32.0-36.0); MEAN CELL VOLUME 84.2 fl (80-96); MEAN PLT VOLUME 8.1 fl (7.5-11.1); PLATELET COUNT 197 K/MM3 (134-434); RBC 4.48 M/mm3 (3.60-5.2); RDW 17.4 % (11.6-15.6); WHITE BLOOD COUNT 8.8 K/mm3 (4.0-10.0)
[2019-11-12 08:28] LABS: ALBUMIN 3.3 g/dl (3.4-5.0); BLOOD UREA NITROGEN 41.1 mg/dL (7-18); CALCIUM 9.5 mg/dL (8.5-10.1); CREATININE 1.3 mg/dL (0.55-1.3); N-TERMINAL BNP 3023.8 pg/ml (5-450); POTASSIUM 4.9 mmol/L (3.5-5.1)
--- NOTE | 2019-11-12 09:57 | PN ---
Progress Note, Physician History of Present Illness: 78yo F PMH primary pulmonary hypertension, HTN, COPD, CAD s/p triple bypass and stent placement 2017, obesity, sedentary lifestyle, presenting from [facility] with chest heaviness at 11:30 AM. Patient denies pain at the current time, endorses SOB, lightheadedness this morning with exertional chest heaviness / "congestion" that occurred shortly after physical therapy session this morning. Patient reports difficulty with dizziness during her 9AM PT session, and then chest pain at the start of her second session. Sent to PT follow an admission to [facility]. Reports a remote Echo and stress test. PMHx: s/p PCI LM 03/2017 2 V CABG CUETO OM and SVG to RCA February 2013 Dr. Thakkar Left CEA Right Carotid artery stenting Dr. Castrejon Right CEA s/p right SFA/popliteal/TPT/peroneal angioplasty for right foot ulcers 04/2018 Dr Castrejon Ongoing medical problems ASHD negative MIBI ST 2011 ASHD PTCA , drug eluting stent placement in 90 % stenosed rPDA, JOSH-promus placement in mLAD and PTCA of 1st diagonal. Nov,January 2010 depression DM 1978 HHD HTN hyperlipidemia In stent restenosis LAD proximal and mid segment. December 30, 2011 [place] 1994 Spinal stenosis 2001 Nonstemi [facility] f/u PCI JOSH LM [facility] dr. Polanco March 2017 Preventive care No preventive care recordedPM - Current Medication List Current Medications: Active Medications Aspirin (Ecotrin -) 81 mg PO DAILY [facility] Last Admin: 11/11/19 09:36 Dose: 81 mg Atorvastatin Calcium (Lipitor -) 40 mg PO HS [facility] Last Admin: 11/11/19 21:18 Dose: 40 mg Clopidogrel Bisulfate (Plavix -) 75 mg PO DAILY [facility] Last Admin: 11/11/19 09:35 Dose: 75 mg Furosemide (Lasix Injection -) 40 mg IVPUSH DAILY [facility] Last Admin: 11/11/19 09:36 Dose: 40 mg Heparin Sodium (Porcine) (Heparin -) 5,000 unit SQ Q8H-IV [facility] Last Admin: 11/12/19 01:01 Dose: 5,000 unit Insulin Aspart (Novolog Vial) [address] [facility]; Protocol Last Admin: 11/12/19 06:32 Dose: 4 unit Insulin Detemir (Levemir Vial) 45 units SQ HS [facility] Last Admin: 11/11/19 21:18 Dose: 45 units Isosorbide Mononitrate (Imdur -) 30 mg PO DAILY [facility] Last Admin: 11/11/19 09:35 Dose: 30 mg Metoprolol Tartrate (Lopressor -) 50 mg PO BID [facility] Last Admin: 11/11/19 21:18 Dose: 50 mg Pantoprazole Sodium (Protonix -) 40 mg PO DAILY [facility] Last Admin: 11/11/19 09:35 Dose: 40 mg - Objective Vital Signs: Vital Signs Temperature 98.1 F 11/12/19 06:49 Pulse Rate 75 11/12/19 06:49 Respiratory Rate 20 11/12/19 06:49 Blood Pressure 120/75 11/12/19 06:49 O2 Sat by Pulse Oximetry (%) 97 11/11/19 19:53 Eyes: Yes: WNL, Conjunctiva Clear, EOM Intact HENT: Yes: WNL, Atraumatic, Normocephalic Neck: Yes: WNL, Supple, Trachea Midline Cardiovascular: Yes: WNL, Regular Rate and Rhythm Respiratory: Yes: WNL, Regular, CTA Bilaterally Gastrointestinal: Yes: WNL, Normal Bowel Sounds Genitourinary: Yes: WNL Musculoskeletal: Yes: WNL Extremities: Yes: WNL Edema: No Integumentary: Yes: WNL Neurological: Yes: WNL, Alert, Oriented ...Motor Strength: WNL Psychiatric: Yes: WNL Labs: CBC, BMP 11/12/19 05:55 11/12/19 05:55 INR, PTT INR 1.12 (0.83-1.09) H 11/10/19 15:23 Assessment/Plan - Problems (1) Coronary artery disease Code(s): I25.10 - ATHSCL HEART DISEASE OF [place] CORONARY ARTERY W/O ANG PCTRS (2) HTN (hypertension) Assessment/Plan: On furosemide and Imdur. F/u BP serially. F/u ECHO for LVEF, wall motion, valve status. Code(s): I10 - ESSENTIAL (PRIMARY) HYPERTENSION (3) Obesity Code(s): E66.9 - OBESITY, UNSPECIFIED (4) Hyperlipidemia Assessment/Plan: On atorvastatin. F/u lipid profile. Code(s): E78.5 - HYPERLIPIDEMIA, UNSPECIFIED (5) Chest pain, rule out acute myocardial infarction Assessment/Plan: TNI < 0.02 x 1; f/u serially. F/u EKG: telemetry. ECHO for LVEF, wall motion, valve status. On ASA and clopidogrel. Risk stratification when stable. Code(s): R07.9 - CHEST PAIN, UNSPECIFIED
--- NOTE | 2019-11-12 10:08 | PN ---
Progress Note, Physician Chief Complaint: AWAKE ALERT NAD EVENTS REVIEWED - Current Medication List Current Medications: Active Medications Aspirin (Ecotrin -) 81 mg PO DAILY [facility] Last Admin: 11/11/19 09:36 Dose: 81 mg Atorvastatin Calcium (Lipitor -) 40 mg PO HS [facility] Last Admin: 11/11/19 21:18 Dose: 40 mg Clopidogrel Bisulfate (Plavix -) 75 mg PO DAILY [facility] Last Admin: 11/11/19 09:35 Dose: 75 mg Furosemide (Lasix Injection -) 40 mg IVPUSH DAILY [facility] Last Admin: 11/11/19 09:36 Dose: 40 mg Heparin Sodium (Porcine) (Heparin -) 5,000 unit SQ Q8H-IV [facility] Last Admin: 11/12/19 01:01 Dose: 5,000 unit Insulin Aspart (Novolog Vial) 1 units SQ [facility]; Protocol Last Admin: 11/12/19 06:32 Dose: 4 unit Insulin Detemir (Levemir Vial) 45 units SQ HS [facility] Last Admin: 11/11/19 21:18 Dose: 45 units Isosorbide Mononitrate (Imdur -) 30 mg PO DAILY [facility] Last Admin: 11/11/19 09:35 Dose: 30 mg Metoprolol Tartrate (Lopressor -) 50 mg PO BID [facility] Last Admin: 11/11/19 21:18 Dose: 50 mg Pantoprazole Sodium (Protonix -) 40 mg PO DAILY [facility] Last Admin: 11/11/19 09:35 Dose: 40 mg - Objective Vital Signs: Vital Signs Temperature 98.1 F 11/12/19 06:49 Pulse Rate 75 11/12/19 06:49 Respiratory Rate 20 11/12/19 06:49 Blood Pressure 120/75 11/12/19 06:49 O2 Sat by Pulse Oximetry (%) 97 11/11/19 19:53 Constitutional: Yes: No Distress Cardiovascular: Yes: Regular Rate and Rhythm Respiratory: Yes: WNL Gastrointestinal: Yes: Soft, Abdomen, Obese Genitourinary: Yes: WNL Musculoskeletal: Yes: Muscle Weakness Edema: Yes Neurological: Yes: Other Labs: CBC, BMP 11/12/19 05:55 11/12/19 05:55 INR, PTT INR 1.12 (0.83-1.09) H 11/10/19 15:23 Problem List - Problems (1) Acute exacerbation of CHF (congestive heart failure) Code(s): I50.9 - HEART FAILURE, UNSPECIFIED (2) Coronary artery disease Code(s): I25.10 - ATHSCL HEART DISEASE OF [place] CORONARY ARTERY W/O ANG PCTRS (3) Diabetes mellitus Code(s): E11.9 - TYPE 2 DIABETES MELLITUS WITHOUT COMPLICATIONS (4) HTN (hypertension) Code(s): I10 - ESSENTIAL (PRIMARY) HYPERTENSION (5) Hyperlipidemia Code(s): E78.5 - HYPERLIPIDEMIA, UNSPECIFIED (6) Obesity Code(s): E66.9 - OBESITY, UNSPECIFIED (7) Chest pain, rule out acute myocardial infarction Code(s): R07.9 - CHEST PAIN, UNSPECIFIED Assessment/Plan CARDIAC WORKUP IN PROGRESS NO ACUTE ALARMS OR TROPONIN CHANGE BP ELEVATED LASIX IV OOB TO CHAIR PT EVAL BACK TO SNF WHEN MEDICALLY CLEARED
[2019-11-12] MEDS: CLOPIDOGREL BISULFATE 75 MG TABLET (FP) PO SCH (11:05)
[2019-11-12] MEDS: ISOSORBIDE MONONITRATE 30 MG TAB.SR.24H (FP) PO SCH (11:05)
[2019-11-12] MEDS: PANTOPRAZOLE 40 MG TABLET PO SCH (11:06)
[2019-11-12] MEDS: METOPROLOL TARTRATE 50 MG TABLET (FP) PO SCH ×2 (11:06→23:08)
[2019-11-12] MEDS: FUROSEMIDE 40 MG/4 ML INJECTABLE VIAL IVPUSH SCH (11:06)
[2019-11-12] MEDS: ASPIRIN COATED 81 MG TABLET.EC PO SCH (11:07)
[2019-11-12] MEDS ORDERED: ACETAMINOPHEN 500 MG TABLET (FP) PO PRN (17:02)
[2019-11-12] MEDS ORDERED: ALBUTEROL SO4 0.083% IH SOL 2.5 MG/3 ML VIAL.NEB. NEB PRN (17:02)
[2019-11-12] MEDS: INSULIN SLIDING SCALE (NOVOLOG) 1 VIAL SQ SCH ×2 (17:54→23:08)
--- NOTE | 2019-11-12 22:34 | CONSULT ---
Consult Consult Specialty:: endocrine Referred by:: dr.ammir adams Reason for Consultation:: DMT2 - History of Present Illness Chief Complaint: weakness and high sugars History of Present Illness: 78F w/ pmh DMT2,HTN,CKD, primary pulmonary HTN, L-spine stenosis, COPD(2L O2), CAD(s/p 3v bypass 2013, s/p cath 2016), recent admission to [facility] for SOB and weakness. Admitted from [facility] for complaint of chest pressure and SOB intermittently Has had dm t2,for past 40years,with diabetic eye,nerve and heart disease aware of need of diet and frequent checking taking insulin long and short acting at home. - Past Medical History Cardio/Vascular: Yes: CAD, CHF, HTN, Other (CABG) Renal/: Yes: Renal Inusuff ...: No - Past Surgical History Past Surgical History: Yes: CABG, Stent (coronary) - Alcohol/Substance Use Hx Alcohol Use: No - Smoking History Smoking history: Never smoked Have you smoked in the past 12 months: No Home Medications - Allergies Allergies/Adverse Reactions: Allergies Allergy/AdvReac Type Severity Reaction Status Date / Time ciprofloxacin [From Cipro] Allergy Verified 11/10/19 14:03 cortisone Allergy Verified 11/10/19 14:03 esomeprazole [From Nexium] Allergy Verified 11/10/19 14:03 hydrocodone Allergy Verified 11/10/19 14:03 NSAIDS (Non-Steroidal Allergy Verified 11/10/19 14:03 Anti-Inflamma paroxetine [From Paxil] Allergy Verified 11/10/19 14:03 Penicillins Allergy Verified 11/10/19 14:01 rosiglitazone [From Avandia] Allergy Verified 11/10/19 14:03 warfarin [From Coumadin] Allergy Verified 11/10/19 14:03 - Home Medications Home Medications: Ambulatory Orders Acetaminophen 1,000 mg PO BID 11/11/19 Aspirin [Aspirin EC] 81 mg PO DAILY 11/11/19 Atorvastatin Ca [Lipitor] 40 mg PO HS 11/11/19 Citalopram Hydrobromide [Citalopram HBr] 20 mg PO DAILY 11/11/19 Clopidogrel Bisulfate [Clopidogrel] 75 mg PO DAILY 11/11/19 Ezetimibe 10 mg PO HS 11/11/19 Folic Acid 1 mg PO DAILY 11/11/19 Insulin Glargine,Hum.rec.anlog [Lantus Solostar PEN -] 45 unit SQ HS 11/11/19 Insulin Lispro [Humalog] 10 unit SQ AC 11/11/19 Isosorbide Mononitrate [Imdur -] 30 mg PO DAILY 11/11/19 Levalbuterol HCl 0.31 mg IH Q8H PRN 11/11/19 Lisinopril [Zestril] 2.5 mg PO DAILY 11/11/19 Metformin HCl [Glucophage] 500 mg PO BID 11/11/19 Metoprolol Tartrate 50 mg PO BID 11/11/19 Montelukast Na [Singulair -] 10 mg PO HS 11/11/19 Nortriptyline HCl [Pamelor -] 25 mg PO HS 11/11/19 Pantoprazole Sodium [Protonix -] 40 mg PO DAILY 11/11/19 Polyethylene Glycol 3350 [Gavilax] 17 gm PO BID 11/11/19 Review of Systems - Review of Systems Eyes: reports: Double Vision HENT: reports: No Symptoms Neck: reports: No Symptoms Respiratory: reports: Exercise Intolerance, SOB, SOB on Exertion Gastrointestinal: reports: Bloating, Indigestion Genitourinary: reports: No Symptoms Breasts: reports: No Symptoms Reported Musculoskeletal: reports: Muscle Weakness Physical Exam Vital Signs: Vital Signs Temperature 97.7 F 11/12/19 17:00 Pulse Rate 112 H 11/12/19 17:00 Respiratory Rate 20 11/12/19 17:00 Blood Pressure 137/65 11/12/19 17:00 O2 Sat by Pulse Oximetry (%) 96 11/12/19 09:00 Constitutional: Yes: Calm Eyes: Yes: EOM Intact HENT: Yes: Normocephalic Neck: Yes: Trachea Midline Cardiovascular: Yes: Regular Rate and Rhythm Respiratory: Yes: CTA Bilaterally Gastrointestinal: Yes: Normal Bowel Sounds ...Rectal Exam: Yes: Deferred Renal/: Yes: WNL Breast(s): Yes: WNL Musculoskeletal: Yes: Muscle Pain, Muscle Weakness Extremities: Yes: Cold, Delayed Capillary Refill Edema: LLE: 1+, RLE: 1+ Neurological: Yes: Alert, Oriented Labs: CBC, BMP 11/12/19 05:55 11/12/19 05:55 Problem List - Problems (1) Type 2 diabetes mellitus with diabetic neuropathic arthropathy Problems reviewed: Yes Code(s): E11.610 - TYPE 2 DIABETES MELLITUS W DIABETIC NEUROPATHIC ARTHROPATHY (2) Acute exacerbation of CHF (congestive heart failure) Code(s): I50.9 - HEART FAILURE, UNSPECIFIED (3) Coronary artery disease Code(s): I25.10 - ATHSCL HEART DISEASE OF [place] CORONARY ARTERY W/O ANG PCTRS (4) Diabetes mellitus Code(s): E11.9 - TYPE 2 DIABETES MELLITUS WITHOUT COMPLICATIONS (5) Obesity Code(s): E66.9 - OBESITY, UNSPECIFIED Assessment/Plan Current Active Problems Laboratory Results - last 24 hr 11/11/19 11/12/19 11/12/19 07:10 05:13 05:55 WBC 8.8 RBC 4.48 Hgb 12.2 Hct 37.7 MCV 84.2 MCH 27.2 MCHC 32.4 RDW 17.4 H Plt Count 197 MPV 8.1 Sodium Potassium Chloride Carbon Dioxide Anion Gap BUN Creatinine Est GFR (CKD-EPI)AfAm Est GFR (CKD-EPI)NonAf POC Glucometer 227 Random Glucose Calcium Total Bilirubin AST ALT Alkaline Phosphatase B-Natriuretic Peptide Total Protein Albumin Hep A IgM Ab Confirm Negative Hep Bs Antigen Negative Hep B Core IgM Ab Negative Hepatitis C Ab (EIA) 0.2 11/12/19 11/12/19 11/12/19 05:55 12:27 17:46 WBC RBC Hgb Hct MCV MCH MCHC RDW Plt Count MPV Sodium 137 Potassium 4.9 Chloride 99 Carbon Dioxide 30 Anion Gap 8 BUN 41.1 H Creatinine 1.3 Est GFR (CKD-EPI)AfAm 45.19 Est GFR (CKD-EPI)NonAf 38.99 POC Glucometer 389 405 Random Glucose 219 H Calcium 9.5 Total Bilirubin 1.0 AST 38 H ALT 54 Alkaline Phosphatase 116 B-Natriuretic Peptide 3023.8 H Total Protein 7.0 Albumin 3.3 L Hep A IgM Ab Confirm Hep Bs Antigen Hep B Core IgM Ab Hepatitis C Ab (EIA) Acute exacerbation of CHF (congestive heart failure) (Acute) Coronary artery disease (Acute) Diabetes mellitus (Acute) HTN (hypertension) (Acute) Hyperlipidemia (Acute) Obesity (Acute) Transaminitis (Acute) Abnormal Lab Results 11/12/19 11/12/19 05:55 05:55 RDW 17.4 H BUN 41.1 H Random Glucose 219 H AST 38 H B-Natriuretic Peptide 3023.8 H Albumin 3.3 L plan: bgm qid novolog scale levemir 35 iubid doses diet encourage less carb
[2019-11-12] MEDS: INSULIN (LEVEMIR) 100 UNITS/ML UNITS SQ SCH (23:08)
[2019-11-12] MEDS: ATORVASTATIN CA 40 MG TABLET (FP) PO SCH (23:08)
[2019-11-13] MEDS: HEPARIN NA (PORCINE) 5,000 UNITS/ML 1ML VIAL SQ SCH ×2 (02:38→11:14)
[2019-11-13] MEDS: INSULIN SLIDING SCALE (NOVOLOG) 1 VIAL SQ SCH ×2 (06:28→11:23)
[2019-11-13] MEDS: INSULIN (LEVEMIR) 100 UNITS/ML UNITS SQ SCH (06:28)
--- NOTE | 2019-11-13 08:50 | DS ---
Physical Examination Vital Signs: Vital Signs Temperature 98.4 F 11/13/19 02:00 Pulse Rate 90 11/13/19 06:00 Respiratory Rate 20 11/13/19 06:00 Blood Pressure 130/77 11/13/19 06:00 O2 Sat by Pulse Oximetry (%) 94 L 11/12/19 21:00 AWAKE ALERT FEELING BETTER Findings/Remarks: AWAKE ALERT FEELING BETTER Constitutional: Yes: No Distress Cardiovascular: Yes: Pulse Irregular Respiratory: Yes: WNL Gastrointestinal: Yes: WNL Renal/: Yes: WNL Musculoskeletal: Yes: Muscle Weakness Edema: Yes Neurological: Yes: WNL Labs: CBC, BMP 11/12/19 05:55 11/12/19 05:55 Discharge Summary Problems reviewed: Yes Reason For Visit: CHEST PAIN Current Active Problems Acute exacerbation of CHF (congestive heart failure) (Acute) Coronary artery disease (Acute) Diabetes mellitus (Acute) HTN (hypertension) (Acute) Hyperlipidemia (Acute) Obesity (Acute) Transaminitis (Acute) Type 2 diabetes mellitus with diabetic neuropathic arthropathy (Acute) Procedures: Principal: ECHO Hospital Course: ADMITTED CARDIAC WORKUP STABLE WILL NEED F/U WITH DR ALEXANDER CARDIOLOGY OUTPATIENT Plan of Treatment: DAILY WEIGHTS FOR CHF PROTOCOL Condition: Improved - Instructions Diet, Activity, Other Instructions: DAILY WEIGHTS FOR CHF PROTOCOL LASIX 40MG DAILY MAY NEED TO INCREASE TO BID CHECK BMP WEEKLY DR ALEXANDER CARDIOLOGY FOLLOW UP Referrals: ON STAFF,NOT [Primary Care Provider] - Disposition: [facility] - Home Medications Comprehensive Discharge Medication List: Ambulatory Orders Acetaminophen 1,000 mg PO BID 11/11/19 Aspirin [Aspirin EC] 81 mg PO DAILY 11/11/19 Atorvastatin Ca [Lipitor] 40 mg PO HS 11/11/19 Citalopram Hydrobromide [Citalopram HBr] 20 mg PO DAILY 11/11/19 Clopidogrel Bisulfate [Clopidogrel] 75 mg PO DAILY 11/11/19 Ezetimibe 10 mg PO HS 11/11/19 Folic Acid 1 mg PO DAILY 11/11/19 Insulin Lispro [Humalog] 10 unit SQ AC 11/11/19 Isosorbide Mononitrate [Imdur -] 30 mg PO DAILY 11/11/19 Levalbuterol HCl 0.31 mg IH Q8H PRN 11/11/19 Lisinopril [Zestril] 2.5 mg PO DAILY 11/11/19 Metformin HCl [Glucophage] 500 mg PO BID 11/11/19 Metoprolol Tartrate 50 mg PO BID 11/11/19 Montelukast Na [Singulair -] 10 mg PO HS 11/11/19 Nortriptyline HCl [Pamelor -] 25 mg PO HS 11/11/19 Pantoprazole Sodium [Protonix -] 40 mg PO DAILY 11/11/19 Polyethylene Glycol 3350 [Gavilax] 17 gm PO BID 11/11/19 Acetaminophen [Tylenol .Extra-Strength -] 1,000 mg PO Q6H PRN tablet 11/13/19 Insulin (Levemir) [Levemir Vial] 35 units SQ BID@0700,2200 units 11/13/19 Insulin (Levemir) [Levemir Vial] 45 units SQ HS units 11/13/19
--- NOTE | 2019-11-13 10:50 | PN ---
Progress Note, Physician History of Present Illness: 78yo F PMH primary pulmonary hypertension, HTN, COPD, CAD s/p triple bypass and stent placement 2017, obesity, sedentary lifestyle, presenting from [facility] with chest heaviness at 11:30 AM. Patient denies pain at the current time, endorses SOB, lightheadedness this morning with exertional chest heaviness / "congestion" that occurred shortly after physical therapy session this morning. Patient reports difficulty with dizziness during her 9AM PT session, and then chest pain at the start of her second session. Sent to PT follow an admission to [facility]. Reports a remote Echo and stress test. PMHx: s/p PCI LM 03/2017 2 V CABG CUETO OM and SVG to RCA February 2013 Dr. Thakkar Left CEA Right Carotid artery stenting Dr. Castrejon Right CEA s/p right SFA/popliteal/TPT/peroneal angioplasty for right foot ulcers 04/2018 Dr Castrejon Ongoing medical problems ASHD negative MIBI ST 2011 ASHD PTCA , drug eluting stent placement in 90 % stenosed rPDA, JOSH-promus placement in mLAD and PTCA of 1st diagonal. Nov,January 2010 depression DM 1978 HHD HTN hyperlipidemia In stent restenosis LAD proximal and mid segment. December 30, 2011 [place] 1995 Spinal stenosis 2001 [facility] f/u PCI JOSH LM [facility] dr. Polanco March 2017 Preventive care No preventive care recordedPM - Current Medication List Current Medications: Active Medications Acetaminophen (Tylenol -) 1,000 mg PO Q6H PRN PRN Reason: PAIN LEVEL 4 - 6 Stop: 11/13/19 17:02 Albuterol Sulfate (Ventolin 0.083% Nebulizer Soln -) 1 amp NEB Q6H PRN PRN Reason: SHORT OF BREATH/WHEEZING Aspirin (Ecotrin -) 81 mg PO DAILY [facility] Last Admin: 11/12/19 11:07 Dose: 81 mg Atorvastatin Calcium (Lipitor -) 40 mg PO HS [facility] Last Admin: 11/12/19 23:08 Dose: 40 mg Clopidogrel Bisulfate (Plavix -) 75 mg PO DAILY [facility] Last Admin: 11/12/19 11:05 Dose: 75 mg Furosemide (Lasix Injection -) 40 mg IVPUSH DAILY [facility] Last Admin: 11/12/19 11:06 Dose: 40 mg Heparin Sodium (Porcine) (Heparin -) 5,000 unit SQ Q8H-IV [facility] Last Admin: 11/13/19 02:38 Dose: 5,000 unit Insulin Aspart (Novolog Vial Sliding Scale -) 1 vial SQ [facility]; Protocol Last Admin: 11/13/19 06:28 Dose: 5 units Insulin Detemir (Levemir Vial) 35 units SQ BID@0700,2200 [facility] Last Admin: 11/13/19 06:28 Dose: 35 units Isosorbide Mononitrate (Imdur -) 30 mg PO DAILY [facility] Last Admin: 11/12/19 11:05 Dose: 30 mg Metoprolol Tartrate (Lopressor -) 50 mg PO BID [facility] Last Admin: 11/12/19 23:08 Dose: 50 mg Pantoprazole Sodium (Protonix -) 40 mg PO DAILY [facility] Last Admin: 11/12/19 11:06 Dose: 40 mg - Objective Vital Signs: Vital Signs Temperature 98.4 F 11/13/19 02:00 Pulse Rate 90 11/13/19 06:00 Respiratory Rate 20 11/13/19 06:00 Blood Pressure 130/77 11/13/19 06:00 O2 Sat by Pulse Oximetry (%) 94 L 11/12/19 21:00 Eyes: Yes: WNL, Conjunctiva Clear, EOM Intact HENT: Yes: WNL, Atraumatic, Normocephalic Neck: Yes: WNL, Supple, Trachea Midline Cardiovascular: Yes: WNL, Regular Rate and Rhythm Respiratory: Yes: WNL, Regular, CTA Bilaterally Gastrointestinal: Yes: WNL, Normal Bowel Sounds Genitourinary: Yes: WNL Musculoskeletal: Yes: WNL Extremities: Yes: WNL Edema: No Integumentary: Yes: WNL Neurological: Yes: WNL, Alert, Oriented ...Motor Strength: WNL Psychiatric: Yes: WNL Labs: CBC, BMP 11/12/19 05:55 11/12/19 05:55 INR, PTT INR 1.12 (0.83-1.09) H 11/10/19 15:23 Assessment/Plan - Problems (1) Coronary artery disease Code(s): I25.10 - ATHSCL HEART DISEASE OF [place] CORONARY ARTERY W/O ANG PCTRS (2) HTN (hypertension) Assessment/Plan: On furosemide and Imdur. F/u BP serially. F/u ECHO for LVEF, wall motion, valve status. Code(s): I10 - ESSENTIAL (PRIMARY) HYPERTENSION (3) Obesity Code(s): E66.9 - OBESITY, UNSPECIFIED (4) Hyperlipidemia Assessment/Plan: On atorvastatin. F/u lipid profile. Code(s): E78.5 - HYPERLIPIDEMIA, UNSPECIFIED (5) Chest pain, rule out acute myocardial infarction Assessment/Plan: TNI < 0.02 x 1; f/u serially. F/u EKG: telemetry. ECHO for LVEF, wall motion, valve status. On ASA and clopidogrel. Risk stratification when stable. Code(s): R07.9 - CHEST PAIN, UNSPECIFIED
[2019-11-13] MEDS: ASPIRIN COATED 81 MG TABLET.EC PO SCH (11:14)
[2019-11-13] MEDS: CLOPIDOGREL BISULFATE 75 MG TABLET (FP) PO SCH (11:14)
[2019-11-13] MEDS: ISOSORBIDE MONONITRATE 30 MG TAB.SR.24H (FP) PO SCH (11:14)
[2019-11-13] MEDS: FUROSEMIDE 40 MG/4 ML INJECTABLE VIAL IVPUSH SCH (11:14)
[2019-11-13] MEDS: PANTOPRAZOLE 40 MG TABLET PO SCH (11:14)
[2019-11-13] MEDS: METOPROLOL TARTRATE 50 MG TABLET (FP) PO SCH (11:14)
--- NOTE | 2019-11-13 14:26 | ECHO ---
Name: SWATI HAMMONDS Exam:Adult Echocardiogram Study Date: 11/13/2019 01:12 PM Age: 78 yrs Reason For Study: Eval for CHF Height: 66 in Weight: 222 lb BSA: 2.1 m2 MMode/2D Measurements & Calculations IVSd: 1.3 cm Ao root diam: 2.9 cm LVIDd: 3.8 cm LA dimension: 3.4 cm LVIDs: 3.0 cm ACS: 1.6 cm LVPWd: 1.3 cm EDV(Teich): 61.5 ml LVOT diam: 2.0 cm ESV(Teich): 35.7 ml MPA diam: 3.9 cm LVLd ap4: 6.6 cm MPA area: 11.8 cm2 EDV(MOD-sp4): 55.0 ml LVLs ap4: 5.2 cm ESV(MOD-sp4): 27.0 ml SV(MOD-sp4): 28.0 ml LAV (MOD-bp): 107.0 ml TAPSE: 1.0 cm RV S Ananth: 5.9 cm/sec Doppler Measurements & Calculations MV E max ananth: 68.6 cm/sec Ao V2 max: 116.7 cm/sec MV A max ananth: 93.3 cm/sec Ao max P.5 mmHg MV E/A: 0.74 Ao V2 mean: 79.8 cm/sec MV dec time: 0.31 sec Ao mean P.0 mmHg Ao V2 VTI: 19.4 cm NEAL(I,D): 2.8 cm2 NEAL(V,D): 2.9 cm2 LV V1 max P.3 mmHg SV(LVOT): 54.4 ml LV V1 mean P.2 mmHg LV V1 max: 104.1 cm/sec LV V1 mean: 67.0 cm/sec LV V1 VTI: 16.8 cm TR max ananth: 331.5 cm/sec PA V2 max: 80.1 cm/sec TR max P.2 mmHg PA max P.6 mmHg PI end-d ananth: 168.3 cm/sec Med Peak E' Ananth: 3.4 cm/sec Med E/e': 20.1 Lat Peak E' Ananth: 5.4 cm/sec Lat E/e': 12.8 Procedure The study was technically difficult with many images being suboptimal in quality. Left Ventricle The left ventricle is normal in size. There is mild concentric left ventricular hypertrophy. Ejection Fraction = 55%. The transmitral spectral Doppler flow pattern is suggestive of impaired LV relaxation. Paradox ical septal motion is consistent with right ventricular volume overload. Right Ventricle The right ventricle is severely dilated. The right ventricular systolic function is severely reduced. Atria The left atrium is severely dilated. The right atrium is severely dilated. Mitral Valve There is mild mitral valve thickening. Calcified mitral apparatus. Tricuspid Valve The tricuspid valve is not well visualized, but is grossly normal. There is moderate to severe tricus pid regurgitation. Right ventricular systolic pressure is elevated at >60mmHg. Aortic Valve There is mild aortic valve thickening. No hemodynamically significant valvular aortic stenosis. Pulmonic Valve The pulmonic valve is not well seen, but is grossly normal. Mild pulmonic valvular regurgitation. Great Vessels Calcified ascending aorta. Severe pulmonary artery dilation. Pericardium/Pleura There is no pericardial effusion. Interpretation Summary LV: Normal size, mild LVH, septal motion suggestive of increased RV load, normal overall systolic fun ction, EF 55%, relaxation abnormality RV: Severely dilated and hypokinetic Severely dilated atria Calciifed mitral valve annulus Moderate to severe TR with severe pulmonary hypertension Dilated pulmonary artery Calcified ascending aorta. Kath Melo 11/13/2019 02:25 PM
[2019-11-13 15:27] VITALS: BP 127/67; PULSE 92; TEMP 98.2
== END 2019-11-13 16:47 | DRG 291 ==
LOC: JER 13:29 → SUPCPDRO 13:29 → JERBED 14:56 → OBSVTOIN 14:56 → J4W 20:35
PROVIDERS: ADMIT Internal Medicine; ATTEND Family Medicine
DX: I13.0 Hypertensive heart and chronic kidney disease with heart failure and stage 1 through stage 4 chronic kidney disease, or unspecified chronic kidney disease (principal); I50.31 Acute diastolic (congestive) heart failure; I27.0 Primary pulmonary hypertension; J44.9 Chronic obstructive pulmonary disease, unspecified; I50.9 Heart failure, unspecified; I25.10 Atherosclerotic heart disease of native coronary artery without angina pectoris; Z99.81 Dependence on supplemental oxygen; Z95.1 Presence of aortocoronary bypass graft; E66.9 Obesity, unspecified; F32.9 Major depressive disorder, single episode, unspecified; E78.5 Hyperlipidemia, unspecified; I25.2 Old myocardial infarction; Z88.0 Allergy status to penicillin; Z79.4 Long term (current) use of insulin; Z68.35 Body mass index [BMI] 35.0-35.9, adult; E11.22 Type 2 diabetes mellitus with diabetic chronic kidney disease; N18.9 Chronic kidney disease, unspecified; I45.10 Unspecified right bundle-branch block; M48.061 Spinal stenosis, lumbar region without neurogenic claudication; R74.0 Nonspecific elevation of levels of transaminase and lactic acid dehydrogenase [LDH]; R94.31 Abnormal electrocardiogram [ECG] [EKG]; E11.610 Type 2 diabetes mellitus with diabetic neuropathic arthropathy
CPT/HCPCS: 36415; 71045-TC-FY; 76705-TC; 80053; 80061; 80074; 82550; 82553; 82962; 83036; 83721; 83735; 83880; 84100; 84484; 85025; 85027; 85610; 85730; 93005; 93010; 93306-TC; 99284-25; J1644